=== PATIENT | male | born 1980 | race Caucasian/White ===

== ENCOUNTER 2018-11-07 20:10 | Emergency (ER) | payer OTHER ==
[~2018-11-07] VITALS: Ht 185.4 cm; Wt 95.2 kg
[~2018-11-07 20:10] MED LIST: HYDACE5 PO; IBUP800 PO; Percocet 5-3251 EACH PO
[2018-11-07] MEDS ORDERED: MUSCLE RELAXER (20:25)
[2018-11-07] MEDS ORDERED: Prednisone20 MG PO (22:38)
[2018-11-07] MEDS ORDERED: EPIPEN 2-P0.3 MG/0.3 IM (22:38)
== END 2018-11-07 23:05 | disposition home or self-care (01) ==
LOC: ER 20:10
DX: T63.441A Toxic effect of venom of bees, accidental (unintentional), initial encounter (principal); Z91.013 Allergy to seafood; Z79.899 Other long term (current) drug therapy; F17.210 Nicotine dependence, cigarettes, uncomplicated
CPT/HCPCS: 96374; 96375; 99283-25; J1100